=== PATIENT | male | born 1960 | race Two or more races ===

== ENCOUNTER 2018-12-19 16:40 | Emergency (ER) | payer SELFPAY ==
[~2018-12-19] VITALS: Ht 160 cm; Wt 86.2 kg
[2018-12-19 16:49] VITALS: BP 162/83
--- NOTE | 2018-12-19 16:50 | NUR ---
ED Nurse Note: Patient walked into ED c/o left upper tootache 12/05 that started since yesterday a/o x4, ambulatory, vss.
[2018-12-19] MEDS ORDERED: IBUPROFEN600 MG ORAL (17:05)
--- NOTE | 2018-12-19 17:05 | Emergency Room Report ---
History of Present Illness General Chief Complaint: Toothache Source: Patient Present Illness HPI 58-year-old male with no significant past medical history complaining of 3 out of 10 pain in the left upper premolar. Patient reports this was as being loose and 9 maximum pain or any radiation. Has not taken anything for pain and has not made any appointment with a dentist. Patient is alert impression we are going to take the tooth out in the emergency room as he is scared to falling when he sleeps and he is scared of swallowing it. Denies chest pain, SOB, palpitations, and orders with his symptoms. Denies ear pain Allergies: Coded Allergies: No Known Allergies (Unverified , 12/19/18) Patient History Past Medical History: see triage record Past Surgical History: none Pertinent Family History: none Immunizations: UTD Reviewed Nursing Documentation: PMH: Agreed; PSxH: Agreed Nursing Documentation-PMH Hx Hypertension: Yes Review of Systems All Other Systems: negative except mentioned in HPI Physical Exam Vital Signs Date Time Temp Pulse Resp B/P (MAP) Pulse Ox O2 Delivery O2 Flow Rate FiO2 12/19/18 16:49 98.2 93 18 162/83 97 Room Air Sp02 EP Interpretation: reviewed, normal General Appearance: normal inspection, well appearing, no apparent distress Head: normocephalic Eyes: bilateral eye normal inspection, bilateral eye PERRL ENT: normal pharynx, no angioedema, other - loose noninfected left upper premolar tooth Neck: normal inspection, full range of motion, supple Respiratory: normal inspection, lungs clear, no rhonchi, no wheezing Cardiovascular #1: normal inspection, normal peripheral pulses, regular rate, rhythm Gastrointestinal: normal inspection, no mass Musculoskeletal: normal inspection Neurologic: normal inspection, alert Psychiatric: normal inspection, judgement/insight normal Skin: normal inspection, no rash Lymphatic: normal inspection, no adenopathy Medical Decision Making PA Attestation All diagnoses and treatment plans were reviewed and discussed with my supervising physician Dr. ward Diagnostic Impression: Primary Impression: Loosening of tooth ER Course 58-year-old male with no significant past medical history complaining of 3 out of 10 pain in the left upper premolar. Patient reports this was as being loose and 9 maximum pain or any radiation. Has not taken anything for pain and has not made any appointment with a dentist. Patient is alert impression we are going to take the tooth out in the emergency room as he is scared to falling when he sleeps and he is scared of swallowing it. Denies chest pain, SOB, palpitations, and orders with his symptoms. Denies ear pain Ddx considered but are not limited to tooth abscess, tooth trauma, loosening tooth Vital signs: are WNL, pt. is afebrile H&PE are most consistent with loosening tooth ORDERS: Motrin 600 ED INTERVENTIONS: None required at this time. DISCHARGE: At this time pt. is stable for d/c to home. Will provide printed patient care instructions, and any necessary prescriptions. Care plan and follow up instructions have been discussed with the patient prior to discharge. follow with dentist Last Vital Signs Date Time Temp Pulse Resp B/P (MAP) Pulse Ox O2 Delivery O2 Flow Rate FiO2 12/19/18 16:49 98.2 93 18 162/83 97 Room Air Disposition: HOME, SELF-CARE Condition: Stable Scripts Ibuprofen* (MOTRIN*) 600 Mg Tablet 600 MG ORAL Q8H PRN for For Pain, #30 TAB 0 Refills Prov: Yoly Singer 12/19/18 Patient Instructions: Tooth Injuries, [id number] Additional Instructions: see a dentist for pulling the tooth. remain in supine position Yoly Singer Dec 19, 2018 17:05
[2018-12-19 17:11] VITALS: BP 162/83
--- NOTE | 2018-12-19 17:11 | NUR ---
ER DISCHARGE NOTE: Patient is cleared to be discharged per ERMD, pt is aox4, on room air, with stable vital signs. pt was given dc and prescription instructions, pt was able to verbalize understanding, pt id band removed without complications. pt is able to ambulate with steady gait. pt took all belongings.
== END 2018-12-19 17:11 | disposition home or self-care (01) ==
LOC: EMR 17:04
DX: K08.89 Other specified disorders of teeth and supporting structures (principal); I10 Essential (primary) hypertension
CPT/HCPCS: 99281